=== PATIENT | female | born 1965 | race Two or more races ===

== ENCOUNTER 2019-04-01 09:44 | Emergency (ER) | payer OTHER ==
[~2019-04-01] VITALS: Ht 167.6 cm; Wt 113.4 kg
[2019-04-01 10:58] VITALS: BP 134/72
[2019-04-01] MEDS ORDERED: ACETAMINOPHEN 500 MG TAB PO ONE (11:15)
[2019-04-01] MEDS ORDERED: TETANUS-DIPTH-ACEL PERTUSSIS 0.5ML SYRG IM ONE (11:45)
== END 2019-04-01 12:04 | disposition home or self-care (01) ==
LOC: ER 09:44
DX: S01.01XA Laceration without foreign body of scalp, initial encounter (principal); I11.0 Hypertensive heart disease with heart failure; I50.9 Heart failure, unspecified; E11.9 Type 2 diabetes mellitus without complications; E78.5 Hyperlipidemia, unspecified; W26.8XXA Contact with other sharp object(s), not elsewhere classified, initial encounter; Y93.01 Activity, walking, marching and hiking; Y92.69 Other specified industrial and construction area as the place of occurrence of the external cause; Y99.8 Other external cause status
CPT/HCPCS: 12002; 70450; 90471; 90715